=== PATIENT | female | born 1975 ===

== ENCOUNTER 2019-09-15 15:43 | Emergency (ER) | payer SELFPAY ==
[2019-09-15 16:46] VITALS: BP 115/63
--- NOTE | 2019-09-15 19:23 | Emergency Department Report ---
- General Chief complaint: Wound/Laceration Stated complaint: RT TOE INSECT BITE/PAIN Time Seen by Provider: 09/15/19 19:10 Source: patient Mode of arrival: Ambulatory Limitations: No Limitations - History of Present Illness Initial comments: Patient is a 44-year-old female presents emergency room with complaints of swelling and redness to the right foot that began 3 days ago. She states that a week ago she believes she got bit by an insect when she was outside doing yardwork. she states that a small bump formed and drained a small amount of pus on its own. she states that the drainage stopped and the bump went away. she states a couple days later she noticed swelling and redness of the foot. She denies any fever, nausea, vomiting, chills, any other symptoms. She denies any past medical history, history of diabetes, allergies medications. she is currently on her menstrual cycle. - Related Data Previous Rx's Medication Instructions Recorded Last Taken Type Acetaminophen/Codeine [Tylenol 1 tab PO Q6H PRN #7 tab 09/15/19 Unknown Rx /Codeine # 3 tab] Clindamycin [Clindamycin CAP] 450 mg PO TID 7 Days #63 capsule 09/15/19 Unknown Rx Ibuprofen [Motrin 600 MG tab] 600 mg PO Q8H PRN #14 tablet 09/15/19 Unknown Rx Allergies Allergy/AdvReac Type Severity Reaction Status Date / Time No Known Allergies Allergy Unverified 09/15/19 19:51 Abscess Boil HPI - HPI Chief Complaint: Wound/Laceration Stated Complaint: RT TOE INSECT BITE/PAIN Time Seen by Provider: 09/15/19 19:10 Home Medications: Previous Rx's Medication Instructions Recorded Last Taken Type Acetaminophen/Codeine [Tylenol 1 tab PO Q6H PRN #7 tab 09/15/19 Unknown Rx /Codeine # 3 tab] Clindamycin [Clindamycin CAP] 450 mg PO TID 7 Days #63 capsule 09/15/19 Unknown Rx Ibuprofen [Motrin 600 MG tab] 600 mg PO Q8H PRN #14 tablet 09/15/19 Unknown Rx Allergies/Adverse Reactions: Allergies Allergy/AdvReac Type Severity Reaction Status Date / Time No Known Allergies Allergy Unverified 09/15/19 19:51 ED Review of Systems ROS: Stated complaint: RT TOE INSECT BITE/PAIN Other details as noted in HPI Comment: All other systems reviewed and negative ED Past Medical Hx - Past Medical History Previous Medical History?: No Hx Hypertension: No Hx CVA: No Hx Heart Attack/AMI: No Hx Congestive Heart Failure: No Hx Diabetes: No Hx Deep Vein Thrombosis: No Hx Pulmonary Embolism: No Hx GERD: No Hx Liver Disease: No Hx Renal Disease: No Hx of Cancer: No Hx Sickle Cell Disease: No Hx Arthritis: No Hx Headaches / Migraines: No Hx Seizures: No Hx Kidney Stones: No Hx Psychiatric Treatment: No Hx Asthma: No Hx COPD: No Hx Tuberculosis: No Hx Dementia: No Hx HIV: No - Surgical History Past Surgical History?: Yes Hx Coronary Stent: No Hx Open Heart Surgery: No Hx Pacemaker: No Hx Internal Defibrillator: No Hx Appendectomy: No Hx Breast Surgery: No Additional Surgical History: hernia surgery and c section - Social History Smoking Status: Current Every Day Smoker Substance Use Type: None - Medications Home Medications: Home Medications Medication Instructions Recorded Confirmed Last Taken Type Acetaminophen/Codeine [Tylenol 1 tab PO Q6H PRN #7 tab 09/15/19 Unknown Rx /Codeine # 3 tab] Clindamycin [Clindamycin CAP] 450 mg PO TID 7 Days #63 capsule 09/15/19 Unknown Rx Ibuprofen [Motrin 600 MG tab] 600 mg PO Q8H PRN #14 tablet 09/15/19 Unknown Rx ED Physical Exam - General Limitations: No Limitations General appearance: alert, in no apparent distress - Head Head exam: Present: atraumatic, normocephalic - Eye Eye exam: Present: normal appearance - ENT ENT exam: Present: mucous membranes moist - Neurological Exam Neurological exam: Present: alert, oriented X3 - Psychiatric Psychiatric exam: Present: normal affect, normal mood - Skin Skin exam: Present: warm, dry, other (4 cm area of erythema to the right dorsal foot, small amount of induration, no fluctuance present, no abscess present at this time, neurovascularly intact, FROM of the right foot and toes) ED Course Vital Signs 09/15/19 16:42 Temperature 98.3 F Pulse Rate 105 H Respiratory 18 Rate Blood Pressure 115/63 Blood Pressure 115/63 [Right] O2 Sat by Pulse 98 Oximetry ED Medical Decision Making - Medical Decision Making Patient is a 44-year-old female presents emergency room with complaints of swelling and redness to the right foot that began 3 days ago. She states that a week ago she believes she got bit by an insect when she was outside doing yardwork. she states that a small bump formed and drained a small amount of pus on its own. she states that the drainage stopped and the bump went away. she states a couple days later she noticed swelling and redness of the foot. She denies any fever, nausea, vomiting, chills, any other symptoms. She denies any past medical history, history of diabetes, allergies medications. she is currently on her menstrual cycle. vitals with mild tachycardia otherwise normal. on exam: 4 cm area of erythema to the right dorsal foot, small amount of induration, no fluctuance present, no abscess present at this time, neurovascularly intact, FROM of the right foot and toes. examination consistent with cellulitis. Patient given clindamycin injection on the emergency department. given prescription for clindamycin, tylenol #3, and ibuprofen. advised pt to please take medication as prescribed. Do not drive or operate heavy machinery while taking pain medication. please follow-up with a primary care doctor in the next 2-3 days for reevaluation. Return to the emergency room immediately for any new or worsening symptoms or any worsening signs of infection such as worsening redness, worsening swelling, fever, chills, etc. - Differential Diagnosis cellulitis, abscess, furnuncle, carbuncle, insect bite Critical care attestation.: If time is entered above; I have spent that time in minutes in the direct care of this critically ill patient, excluding procedure time. ED Disposition Clinical Impression: Cellulitis of right foot Disposition: [id number] TO HOME OR SELFCARE Is pt being admited?: No Does the pt Need Aspirin: No Condition: Stable Instructions: Cellulitis (ED) Additional Instructions: Please take medication as prescribed. Do not drive or operate heavy machinery while taking pain medication. please follow-up with a primary care doctor in the next 2-3 days for reevaluation. Return to the emergency room immediately for any new or worsening symptoms or any worsening signs of infection such as worsening redness, worsening swelling, fever, chills, etc. Prescriptions: Clindamycin [Clindamycin CAP] 450 mg PO TID 7 Days #63 capsule Ibuprofen [Motrin 600 MG tab] 600 mg PO Q8H PRN #14 tablet PRN Reason: Pain, Moderate (4-6) Acetaminophen/Codeine [Tylenol /Codeine # 3 tab] 1 tab PO Q6H PRN #7 tab PRN Reason: Pain , Severe (7-10) Referrals: [facility] [Provider Group] - 2-3 Days Forms: Work/School Release Form(ED) Time of Disposition: 19:20 Print Language: DJIBOUTIAN
[2019-09-15] MEDS ORDERED: CLEOCIN IM ONE (19:25)
== END 2019-09-15 19:54 | disposition home or self-care (01) ==
LOC: ED 15:43
DX: L03.115 Cellulitis of right lower limb (principal); F17.200 Nicotine dependence, unspecified, uncomplicated; Z98.890 Other specified postprocedural states; Z79.899 Other long term (current) drug therapy
CPT/HCPCS: 96372; 99282